=== PATIENT | female | born 1995 | race Caucasian/White ===

== ENCOUNTER 2023-11-14 07:11 | Inpatient (IN) ==
[2023-11-14] MEDS ORDERED: Lidocaine 1% VIAL 10 MG/ML 30 ML VIAL INJ PRN (08:10)
[2023-11-14] MEDS ORDERED: Dibucaine 1% OINT 28.35 GM TUBE PR PRN (08:13)
[2023-11-14] MEDS ORDERED: Lactated Ringers 1000 ml BAG 1,000 ML IV SCH (09:00)
[2023-11-14 10:35] LABS: Urine Appearance Clear; Urine Bilirubin Negative (Negative); Urine Blood 2+ (Negative); Urine Color Yellow; Urine Glucose Negative (Negative); Urine Ketones 2+ (Negative); Urine Nitrite Negative (Negative); Urine Protein Trace (Negative); Urine Specific Gravity 1.022 (1.002-1.030); Urine Urobilinogen Negative (Negative)
[2023-11-14 10:36] LABS: Urine Bacteria Absent /HPF (Absent); Urine Red Blood Cell 3+(>10/hpf) /HPF (0-Trace); Urine Squamous Epithelial Cell Present /HPF (Absent); Urine White Blood Cell Trace(0-5/hpf) /HPF (0-Trace)
[2023-11-14 10:47] LABS: Urine Benzodiazepine Screen None Detected (None Detect); Urine Cannabinoids Screen None Detected (None Detect); Urine Opiates Screen None Detected (None Detect)
[2023-11-14] MEDS: Witch Hazel PAD JAR TOPICAL PRN (12:08)
[2023-11-14] MEDS: Oxytocin 10 UNITS/ML 1 ML VIAL IM ONE (12:12)
[2023-11-15] MEDS: Lactated Ringers 1000 ml BAG 1,000 ML IV ONE (02:32)
[2023-11-15] MEDS: Buffered Lidocaine 1% SYRIN 1 ml INTRADERM ONE (02:32)
[2023-11-15 06:37] LABS: ABS Basophils 0.1 10^3/uL (0.0-0.1); ABS Lymphocytes 1.5 10^3/uL (1.0-4.8); ABS Monocytes 0.8 10^3/uL (0.0-0.9); Eosinophil % 0.1 %; Hematocrit 36.8 % (35-45); Hemoglobin 12.6 g/dL (11.5-14.3); Lymphocyte % 11.5 %; Mean Corpuscular Hemoglobin 32.2 pg (27-33); Mean Corpuscular Hgb Conc 34.4 g/dL (31-36); Mean Corpuscular Volume 93.8 fL (80-97); Mean Platelet Volume 8.2 fL (7.5-11.2); Platelet Count 257 10^3/uL (150-450); Red Blood Count 3.93 10^6/uL (3.63-4.92); Red Cell Distribution Width 13.1 % (12-17); White Blood Count 13.4 10^3/uL (3.8-11.8)
[2023-11-16 08:26] VITALS: BP 104/61
== END 2023-11-16 15:00 | disposition home or self-care (01) | DRG 560 ==
LOC: MCHOBOUT 07:14 → MCHOB 07:29
PROVIDERS: ADMIT Advanced Practice Midwife; ATTEND Midwife